=== PATIENT | female | born 1990 | race Caucasian/White ===

== ENCOUNTER → 2023-08-12 09:37 | Outpatient (REF) | payer OTHER, SELFPAY | LOC: PNTC 09:37 | PROVIDERS: ATTENDING PHYSICIAN Obstetrics & Gynecology | DX: O14.90 Unspecified pre-eclampsia, unspecified trimester (principal); Z86.79 Personal history of other diseases of the circulatory system | CPT/HCPCS: 76816 ==

== ENCOUNTER 2023-08-25 22:28 | Observation (INO) | payer OTHER, SELFPAY ==
[2023-08-25 22:59] VITALS: BP 124/79; BMI 43.9
== END 2023-08-25 23:36 | disposition home or self-care (01) ==
LOC: LDRP 22:28
PROVIDERS: ADMITTING PHYSICIAN Obstetrics & Gynecology
DX: Z04.1 Encounter for examination and observation following transport accident (principal); Z3A.30 30 weeks gestation of pregnancy
CPT/HCPCS: G0378

== ENCOUNTER → 2023-09-09 09:42 | Outpatient (REF) | payer OTHER, SELFPAY | LOC: PNTC 09:42 | PROVIDERS: ATTENDING PHYSICIAN Obstetrics & Gynecology | DX: Z87.51 Personal history of pre-term labor (principal); Z86.79 Personal history of other diseases of the circulatory system | CPT/HCPCS: 76816 ==

== ENCOUNTER → 2023-09-16 08:23 | Outpatient (REF) | payer OTHER, SELFPAY | LOC: PNTC 08:23 | PROVIDERS: ATTENDING PHYSICIAN Obstetrics & Gynecology | DX: O99.210 Obesity complicating pregnancy, unspecified trimester (principal); Z87.59 Personal history of other complications of pregnancy, childbirth and the puerperium | CPT/HCPCS: 59025; 76815 ==

== ENCOUNTER → 2023-09-23 09:23 | Outpatient (REF) | payer OTHER, SELFPAY | LOC: PNTC 09:23 | PROVIDERS: ATTENDING PHYSICIAN Obstetrics & Gynecology | DX: O99.210 Obesity complicating pregnancy, unspecified trimester (principal); O13.9 Gestational [pregnancy-induced] hypertension without significant proteinuria, unspecified trimester | CPT/HCPCS: 59025; 76815 ==

== ENCOUNTER → 2023-09-30 10:20 | Outpatient (REF) | payer OTHER, SELFPAY | LOC: PNTC 10:20 | PROVIDERS: ATTENDING PHYSICIAN Obstetrics & Gynecology | DX: O99.210 Obesity complicating pregnancy, unspecified trimester (principal); O13.9 Gestational [pregnancy-induced] hypertension without significant proteinuria, unspecified trimester | CPT/HCPCS: 59025; 76815 ==

== ENCOUNTER 2023-10-07 09:11 | Observation (INO) | payer OTHER, SELFPAY ==
[2023-10-07 09:45] VITALS: BP 120/81; BMI 45.4
[2023-10-07 09:47] LABS: Hematocrit 33.3 % (37.0-47.0); Mean Corpuscular Hgb 28.1 pg (27.0-31.0); Mean Corpuscular Volume 84.9 fL (81.0-99.0); Mean Platelet Volume 9.4 fL (7.4-10.4); Platelet Count 395 10^3/uL (130-400); Red Blood Cell Count 3.92 10^6/uL (4.20-5.40); Red Cell Dist. Width 14.3 % (11.5-14.5); White Blood Cell Count 10.6 10^3/uL (4.8-10.8)
[2023-10-07 09:48] LABS: Urine Albumin Negative (Neg - Trace); Urine Bilirubin Negative (Negative); Urine Character Slightly Cloudy (Clear); Urine Color Yellow; Urine Glucose Negative (Negative); Urine Ketone 2+ (Negative); Urine Leukocyte 2+ (Negative); Urine Nitrite Negative (Negative); Urine Occult Blood Negative (Negative); Urine Urobilinogen Negative (Neg - 1+)
[2023-10-07 09:57] LABS: Urine Bacteria Many (Negative); Urine Red Blood Cell 0-2 /HPF (0-2); Urine Squamous Cell >30 /LPF (Few); Urine White Cell 16-20 /HPF (0-5)
[2023-10-07 10:04] LABS: ALT (SGPT) 17 U/L (0-35); AST (SGOT) 18 U/L (14-36); Albumin 3.2 g/dl (3.5-5.0); Alkaline Phosphatase 132 U/L (38-126); Blood Urea Nitrogen 4 mg/dl (7-17); Calcium 9.1 mg/dl (8.4-10.2); Carbon Dioxide 18 mmol/L (22-30); Chloride 108 mmol/L (98-107); Estimated Creatinine Clearance > 125 ml/min; Glucose 120 mg/dl (70-99); Potassium 4.1 mmol/L (3.5-5.1); Sodium 131 mmol/L (135-145); Total Bilirubin 0.3 mg/dl (0.2-1.3); Total Protein 6.2 g/dl (6.3-8.2); eGFR > 60.00
[2023-10-07 10:25] LABS: Protein/creatinine Ratio 0.1; Urine Protein 9 mg/dl
== END 2023-10-07 11:09 | disposition home or self-care (01) ==
LOC: PNTC-IN 09:11
PROVIDERS: ADMITTING PHYSICIAN Obstetrics & Gynecology; ATTENDING PHYSICIAN Obstetrics & Gynecology
DX: O09.893 Supervision of other high risk pregnancies, third trimester (principal); Z3A.37 37 weeks gestation of pregnancy
CPT/HCPCS: 59025; 76816; 80053; 81003; 81015; 82570; 84156; 85027; 86850; 86900; 86901; G0378

== ENCOUNTER 2023-10-14 19:44 | Inpatient (IN) | payer OTHER, SELFPAY ==
[2023-10-14 19:55] VITALS: BMI 45.9
[2023-10-14 20:03] VITALS: BP 123/76
[2023-10-14 21:09] LABS: % Basophils 0.2 % (0-2); % Eosinophils 0.3 % (0-6); % Immature Granulocytes 0.5 % (0-0.5); % Lymphocytes 21.1 % (20.5-51.1); % Monocytes 9.6 % (1.7-9.3); % Neutrophils 68.3 % (42.2-75.2); Absolute Immature Granulocytes 0.1 10^3/uL (0-0.05); Absolute Lymphocytes 2.6 10^3/uL (1.2-3.4); Absolute Monocytes 1.2 10^3/uL (0.1-0.6); Absolute Neutrophils 8.4 10^3/uL (1.4-6.5); Hematocrit 31.7 % (37.0-47.0); Hemoglobin 10.7 g/dL (12.0-16.0); Mean Corp Hgb Conc. 33.8 g/dL (33.0-37.0); Mean Corpuscular Hgb 27.7 pg (27.0-31.0); Mean Corpuscular Volume 82.1 fL (81.0-99.0); Mean Platelet Volume 9.5 fL (7.4-10.4); Nucleated Red Blood Cells % 0 %; Platelet Count 438 10^3/uL (130-400); Red Blood Cell Count 3.86 10^6/uL (4.20-5.40); Red Cell Dist. Width 14.3 % (11.5-14.5); White Blood Cell Count 12.3 10^3/uL (4.8-10.8)
[2023-10-14 22:31] LABS: Urine Albumin Trace (Neg - Trace); Urine Bilirubin Negative (Negative); Urine Character Slightly Cloudy (Clear); Urine Color Yellow; Urine Glucose Negative (Negative); Urine Ketone Trace (Negative); Urine Leukocyte Trace (Negative); Urine Nitrite Negative (Negative); Urine Occult Blood Negative (Negative); Urine Urobilinogen Negative (Neg - 1+)
[2023-10-14 22:37] LABS: Urine Squamous Cell >30 /LPF (Few)
[2023-10-14 22:39] LABS: Urine Bacteria Many (Negative); Urine Red Blood Cell None Seen /HPF (0-2)
[2023-10-14] MEDS: PITOCIN 30 UNITS/NSS 500 ML IV (22:47)
[2023-10-14] MEDS: LR 1000 IV (22:47)
[2023-10-14] MEDS: FLUSH (NSS) 1 FLUSH IV (22:48)
[2023-10-14 22:49] LABS: Protein/creatinine Ratio 0.1; Urine Protein 9 mg/dl
[2023-10-14 23:07] LABS: ALT (SGPT) 16 U/L (0-35); AST (SGOT) 20 U/L (14-36); Albumin 3.6 g/dl (3.5-5.0); Alkaline Phosphatase 155 U/L (38-126); Blood Urea Nitrogen 6 mg/dl (7-17); Calcium 9.2 mg/dl (8.4-10.2); Carbon Dioxide 20 mmol/L (22-30); Chloride 104 mmol/L (98-107); Estimated Creatinine Clearance > 125 ml/min; Glucose 79 mg/dl (70-99); Potassium 4.2 mmol/L (3.5-5.1); Sodium 130 mmol/L (135-145); Total Bilirubin 0.4 mg/dl (0.2-1.3); Total Protein 6.8 g/dl (6.3-8.2); eGFR > 60.00
[2023-10-15] MEDS: PHENERGAN 50.5 MG IV (06:13)
[2023-10-15] MEDS: LR 1000 IV (06:24)
[2023-10-15] MEDS: FENTANYL/BUPIVACAINE 100 EPIDURAL (06:34)
[2023-10-15] MEDS: SUBLIMAZE 100 MCG EPIDURAL (06:34)
[2023-10-15] MEDS: MOTRIN 600 MG PO ×2 (12:24→20:07)
[2023-10-15] MEDS: PRENATAL PLUS PO (12:24)
[2023-10-15] MEDS: PEPCID 20 MG PO (20:05)
[2023-10-15 21:09] LABS: Hematocrit 30.7 % (37.0-47.0); Hemoglobin 10.4 g/dL (12.0-16.0); Mean Corp Hgb Conc. 33.9 g/dL (33.0-37.0); Mean Corpuscular Hgb 27.7 pg (27.0-31.0); Mean Corpuscular Volume 81.9 fL (81.0-99.0); Mean Platelet Volume 9.4 fL (7.4-10.4); Platelet Count 381 10^3/uL (130-400); Red Blood Cell Count 3.75 10^6/uL (4.20-5.40); Red Cell Dist. Width 14.3 % (11.5-14.5); White Blood Cell Count 15.5 10^3/uL (4.8-10.8)
[2023-10-15 21:29] LABS: ALT (SGPT) 17 U/L (0-35); AST (SGOT) 25 U/L (14-36); Alkaline Phosphatase 123 U/L (38-126); Blood Urea Nitrogen 4 mg/dl (7-17); Calcium 9.5 mg/dl (8.4-10.2); Carbon Dioxide 19 mmol/L (22-30); Chloride 108 mmol/L (98-107); Estimated Creatinine Clearance > 125 ml/min; Glucose 125 mg/dl (70-99); Potassium 3.7 mmol/L (3.5-5.1); Sodium 131 mmol/L (135-145); Total Bilirubin 0.2 mg/dl (0.2-1.3); eGFR > 60.00
[2023-10-15] MEDS: TRANDATE 200 MG PO (21:34)
[2023-10-16] MEDS: MOTRIN 600 MG PO ×3 (05:01→17:58)
[2023-10-16 05:21] LABS: Hematocrit 30.1 % (37.0-47.0); Hemoglobin 9.9 g/dL (12.0-16.0)
[2023-10-16] MEDS: PRENATAL PLUS 1 TABLET PO (08:14)
[2023-10-16] MEDS: TRANDATE 200 MG PO ×2 (08:14→19:58)
[2023-10-16] MEDS: FEOSOL 325 MG PO (12:09)
[2023-10-16] MEDS: PEPCID 20 MG PO (22:00)
[2023-10-17] MEDS: SENOKOT-S 1 TABLET PO (00:34)
[2023-10-17] MEDS: TYLENOL 650 MG PO (00:34)
[2023-10-17] MEDS: MOTRIN 600 MG PO (04:43)
[2023-10-17] MEDS: PRENATAL PLUS 1 TABLET PO (07:47)
[2023-10-17] MEDS: TRANDATE 200 MG PO (07:47)
[2023-10-17] MEDS: FEOSOL 325 MG PO (07:47)
[2023-10-17 12:14] LABS: Syphilis/T. pallidum Ab Reflex Negative (Negative)
== END 2023-10-17 11:47 | disposition home or self-care (01) | DRG 807 ==
LOC: LDRP 19:44
PROVIDERS: Obstetrics & Gynecology; ADMITTING PHYSICIAN Obstetrics & Gynecology; FAMILY PHYSICIAN Obstetrics & Gynecology
PROC: 3E033VJ Introduction of Other Hormone into Peripheral Vein, Percutaneous Approach (ICD-10-PCS; 2023-10-14)
PROC: 10E0XZZ Delivery of Products of Conception, External Approach (ICD-10-PCS; 2023-10-15)
PROC: 10907ZC Drainage of Amniotic Fluid, Therapeutic from Products of Conception, Via Natural or Artificial Opening (ICD-10-PCS; 2023-10-15)
DX: O13.4 Gestational [pregnancy-induced] hypertension without significant proteinuria, complicating childbirth (principal); Z37.0 Single live birth; Z3A.38 38 weeks gestation of pregnancy; K21.9 Gastro-esophageal reflux disease without esophagitis; O99.214 Obesity complicating childbirth; Z79.82 Long term (current) use of aspirin; Z14.1 Cystic fibrosis carrier; H53.8 Other visual disturbances; O90.81 Anemia of the puerperium; D64.9 Anemia, unspecified
CPT/HCPCS: 36415; 59025; 76815; 80053; 81003; 81015; 82570; 84156; 85014; 85018; 85025; 85027; 86780; 86850; 86900; 86901

== ENCOUNTER 2025-04-15 21:30 | Emergency (ER) | payer OTHER, SELFPAY ==
[2025-04-15 21:34] VITALS: BP 162/106
[2025-04-15 22:25] VITALS: BP 130/62
[2025-04-15 22:42] VITALS: BMI 42.5
[2025-04-15 23:00] VITALS: BP 122/91
[2025-04-15 23:10] LABS: Hematocrit 40.3 % (37.0-47.0); Hemoglobin 13.7 g/dL (12.0-16.0); Mean Corp Hgb Conc. 34.0 g/dL (33.0-37.0); Mean Corpuscular Volume 85.0 fL (81.0-99.0); Nucleated Red Blood Cells % 0.2 %; Platelet Count 293 10^3/uL (130-400); Red Cell Dist. Width 12.9 % (11.5-14.5)
[2025-04-15 23:20] LABS: ALT (SGPT) 23 U/L (0-35); AST (SGOT) 19 U/L (14-36); Albumin 4.2 g/dl (3.5-5.0); Alkaline Phosphatase 70 U/L (38-126); Blood Urea Nitrogen 9 mg/dl (7-17); Calcium 9.5 mg/dl (8.4-10.2); Carbon Dioxide 26 mmol/L (22-30); Chloride 105 mmol/L (98-107); Estimated Creatinine Clearance > 125 ml/min; Glucose 105 mg/dl (70-99); Potassium 3.9 mmol/L (3.5-5.1); Sodium 134 mmol/L (135-145); Total Protein 7.2 g/dl (6.3-8.2); eGFR > 60.00
[2025-04-15 23:30] LABS: Troponin I < 0.012 ng/ml
[2025-04-15 23:49] LABS: TSH 2.24 uIU/ml (0.47-4.68)
[2025-04-16] VITALS: BP 119/78
--- NOTE | 2025-04-16 00:08 | ED.GENMED ---
History of Present Illness
General
Chief Complaint: Blood Pressure Problem
Source: patient
Time Seen by Provider: 04/15/25 22:50
History of Present Illness
History of Present Illness:
34-year-old female with no significant past medical history presents to the emergency department for evaluation of elevated blood pressure at home, palpitations and a mild headache. Patient states she started noticed the headache last night, took
some Motrin and went to bed, woke up still with a slight headache so decided to check her blood pressure and noted it was elevated, had a history of preeclampsia which she states was the only time she had elevated blood pressure in the past, and
wanted to come to the ER to make sure 'everything was okay'. Patient denies any fevers or recent illnesses, chest pain or shortness of breath, abdominal pain, nausea or vomiting, bowel changes or urinary symptoms. She did not take anything for
symptoms prior to arrival. Social history was otherwise noncontributory
Past History
Past History
ED Past Medical History: None
ED Past Surgical History: None
Social History
Tobacco: Non-smoker
Alcohol: Occasional
Drug: None
Personal:
Living: with family
Review of Systems
Review of Systems
All Other Systems: ROS reviewed and negative except as documented in HPI and ROS
Phy Exam
Physical Exam
Physical Exam:
GENERAL: Alert , in no apparent distress
EYE: clear conjunctiva b/l
HEAD: NCAT
ENT: o/p clr, mmm.
CARDIAC: Intermittently tachycardic rate, normal rhythm, no murmur
LUNGS: Clear breath sounds bilaterally, no acute respiratory distress, no wheezes/rales/rhonchi
ABDOMEN: Soft, without focal tenderness, no r/g, no cvat
NEUROLOGICAL: Alert and oriented
SKIN: Warm and dry, skin intact.
MUSCULOSKELETAL: No edema, well perfused.
PSYCH: Normal and appropriate interaction.
Scores
Heart Failure Risk
Heart Failure Risk Score: Not Applicable
Heart Score for Chest Pain Patients
STEMI patient?: Not applicable
Withdrawal Assessment of Alcohol
Withdrawal Assessment Completed?: Not applicable
Course
Orders/Labs/Results
Orders:
Orders
04/15/25 15:27
Comprehensive Metabolic Panel Urgent
TSH Urgent
Comment: ADD ON
04/15/25 21:36
ECG [Electrocardiogram (*1)] Urgent
Reason for Study: Hypertension, Benign
EKG- Treatment ONCE
04/15/25 22:18
Electrocardiogram (*1) Urgent
Reason for Study: Other
Other Reason for Exam: Respiratory Distress
EKG- Treatment ONCE
IV Insert/Care/Rem.- Treatment PRN
CR Chest - 2 Views Urgent
Comment:
Reason For Exam: respiratory distress
O2 Therapy [RESP] Urgent
Titrate/Wean O2 to maintain O2 sat greater than (%): 93
Special Instructions: TO MAINTAIN CONTINUOUS O2 SATS >/= 93%
Pulse Ox/cont/shift [RESP] Urgent
Quantity: 1
Special Instructions: continuous pulse ox
04/15/25 22:53
Complete Blood Count/With Diff Urgent
NT-proBNP Urgent
Troponin I Urgent
04/15/25 22:58
Add On- LAB Urgent
Tests Added?: TSH
Abnormal Lab Results
04/15/25 04/15/25
15:27 22:53
Absolute Monos (auto) 1.1 H 10^3/uL
(0.1-0.6)
Monocytes % 12.7 H %
(1.7-9.3)
Sodium 134 L mmol/L
(135-145)
Glucose 105 H mg/dl
(70-99)
04/15/25 22:53
04/15/25 15:27
Vital Signs
Initial and Last Documented VS:
Initial Vital Signs
Temp Pulse Resp BP Pulse Ox
98.2 F 111 20 162/106 99
04/15/25 21:34 04/15/25 21:34 04/15/25 21:34 04/15/25 21:34 04/15/25 21:34
Last Documented Vital Signs
Temp Pulse Resp BP Pulse Ox
98.2 F 95 22 122/91 100
04/15/25 21:34 04/15/25 23:15 04/15/25 23:15 04/15/25 23:00 04/15/25 23:52
MDM/Problems Addressed
Differential Diagnosis Includes:
HTN
Cardiac Arrhythmia
Electrolyte imbalance
Tyroid dysfunction
Atypical ACS
HTN urgency
MDM/Problems Addressed:
34-year-old female presenting to the ER for evaluation of elevated blood pressure and palpitations. Initial blood pressure on arrival noted, at time of my exam much improved. Still with slight elevated heart rate. Will check labs including
thyroid studies. EKG nonischemic. Anticipate discharge home with outpatient follow-up with primary care provider.
*Radiology
Radiology exam reviewed: preliminary read by ED provider (Normal chest x-ray)
*Pulse Oximetry
SaO2: 100
Oxygen Mode of Delivery: Room air
Patient hypoxic: no
*EKG
Heart Rate: 107
Rate: tachycardiac
Rhythm: sinus
[place]: normal axis
Ischemia: no ischemia
*Wedding Photographer Interpretation
Rate: normal
Heart Rate: 97
Rhythm: sinus
*Critical Care Note
Total Time (30-74mins, 75-104mins- exclusive of procedures): Not Applicable
Patient Management
Escalation/DeEscalation of care consider admission/obs:
On reevaluation patient has had multiple blood pressures that remain within normal limits. Heart rate improved. At this time I do think it is reasonable for patient to be discharged home and follow-up with primary care provider. Aware of return
precautions to the ER.
ED Attending Note
-
Portions of this chart may have been created with voice recognition software.� Occasional wrong word or��sound alike� substitutions may have occurred due to the inherent limitations of voice recognition software.
Discharge Plan
Departure
Patient Disposition: Home (Routine Discharge)
Date of Disposition: 04/16/25
Time of Disposition: 00:08
Patient with high blood pressure during this ER visit?: Yes
Discharge Problem:
Elevated blood pressure reading, Heart palpitations
Instructions: BLOOD PRESSURE
Prescriptions:
No Action
famotidine [Pepcid] 20 mg Tablet
20 mg PO HS
prenat.vits,nadine,[id number] Tablet
1 tab PO DAILY
acetaminophen 325 mg Tablet
650 mg PO Q4HPRN PRN (Reason: mild pain) Qty: 0 0RF
labetalol 200 mg Tablet
200 mg PO BID Qty: 60 1RF
sennosides-docusate sodium [Stool Softener-Stimulant Laxat] 8.6-50 mg Tablet
1 tab PO DAILYPRN PRN (Reason: constipation) Qty: 0 0RF
famotidine 20 mg Tablet
20 mg PO HS Qty: 0 0RF
ferrous sulfate [FeroSul] 325 mg (65 mg iron) Tablet
325 mg PO DAILY Qty: 0 0RF
ibuprofen 600 mg Tablet
400 mg PO Q4HPRN PRN (Reason: moderate pain/cramps) Qty: 0 0RF
Referrals:
NONE,* [Family Provider, Internal Medicine]
Interventions
Interventions:
*Risk Screen - Suicide Last Done: 04/15/25 22:40
*General Assessment Last Done: 04/15/25 21:34
*Neglect/Abuse Screening Last Done: 04/15/25 22:40
*ED- Fall Risk Assessment Last Done: 04/15/25 22:40
*ED COVID-19 Vaccine History Last Done: 04/15/25 22:40
*ED Influenza Vaccine History Last Done: 04/15/25 22:40
ED- Cardiac Assessment Last Done: 04/15/25 22:41
ED- Neurological Assessment Last Done: 04/15/25 22:41
ED- Pulmonary Assessment Last Done: 04/15/25 22:41
Discharge Date and Time
Print Language: SAO TOMEAN
[2025-04-16 00:46] LABS: HCG, Serum Qualitative Screen Negative
== END 2025-04-16 00:40 | disposition home or self-care (01) ==
LOC: EMR 21:30
PROVIDERS: EMERGENCY PHYSICIAN Emergency Medicine
DX: R51.9 Headache, unspecified (principal); R00.2 Palpitations; I10 Essential (primary) hypertension
CPT/HCPCS: 99283; 71046; 80053; 83880; 84443; 84484; 84703; 85025; 93005